=== PATIENT | male | born 1945 | race Hispanic/Latino ===

== ENCOUNTER → 2017-09-01 | Outpatient (CLI) | payer OTHER | END | disposition home or self-care (01) | LOC: SHCH 08:29 | PROVIDERS: ATTEND Internal Medicine Cardiovascular Disease | DX: I25.10 Atherosclerotic heart disease of native coronary artery without angina pectoris (principal); I65.23 Occlusion and stenosis of bilateral carotid arteries; I70.0 Atherosclerosis of aorta; I71.4 Abdominal aortic aneurysm, without rupture | CPT/HCPCS: 93880; 93978 ==

== ENCOUNTER → 2020-01-19 | Outpatient (CLI) | payer OTHER ==
[~2020-01-19] MED LIST: REGADENOSON 0.4 MG/5 ML PF SYG IVP SCH
== END | disposition home or self-care (01) ==
LOC: SHCH 07:45
PROVIDERS: ATTEND Internal Medicine Cardiovascular Disease
DX: I10 Essential (primary) hypertension (principal); I25.10 Atherosclerotic heart disease of native coronary artery without angina pectoris
CPT/HCPCS: 78452; 93017; 96374; A9500 ×2; J2785

== ENCOUNTER → 2025-02-23 | Outpatient (CLI) | payer OTHER ==
--- NOTE | 2025-02-23 11:22 | HMCIMG ---
US ABDOMINAL COMPLETE REASON: CKD COMPARISON: None FINDINGS: There is normal sonographic appearance of the liver. The left is 13.2 cm. There are no focal mass lesions. The liver is not enlarged.There is a normal-appearing gallbladder. The gallbladder wall thickness is 0.2 cm. Kidneys appear normal in size and appearance. The right kidney measures 9.1 x 4.8 x 5.2 cm the left kidney measures 9.9 x 4.7 x 4.7 cm. Both kidneys cortex appears to be mildly echogenic. There is no evidence of mass, stone or hydronephrosis. Spleen and common duct appear normal. Aorta and inferior vena cava appear normal. The common bile duct measures 0.4 cm. The spleen measures 10.3 cm. The pancreas appears normal as well. IMPRESSION: Mildly echogenic cortex of both kidneys suggesting of underlying medical renal disease Otherwise Normal abdomen sonogram.
== END | disposition home or self-care (01) ==
LOC: RAH 09:14
PROVIDERS: ATTEND Family Medicine
DX: N18.31 Chronic kidney disease, stage 3a (principal)
CPT/HCPCS: 76700